=== PATIENT | male | born 1995 | race African-American/Black ===

== ENCOUNTER 2021-05-15 02:35 | Emergency (ER) | payer SELFPAY ==
[~2021-05-15] VITALS: Ht 170.2 cm; Wt 70.0 kg
[2021-05-15] MEDS ORDERED: MORPHINE SULFATE 10 MG/ML CPJ IM ONE (04:45)
[2021-05-15 04:52] VITALS: BP 96/61
[2021-05-21] MEDS ORDERED: HYDR-4001 MT (14:06)
== END 2021-05-15 05:59 | disposition left against medical advice (07) ==
LOC: ER 02:35 → EDBD 02:35 → ER 05:59
DX: M25.562 Pain in left knee (principal); R07.89 Other chest pain; F12.10 Cannabis abuse, uncomplicated; F15.10 Other stimulant abuse, uncomplicated; F17.290 Nicotine dependence, other tobacco product, uncomplicated
CPT/HCPCS: 96372; 99283; J2270; Z7610